=== PATIENT | male | born 1930 | race Caucasian/White ===

== ENCOUNTER 2016-09-25 16:32 | Inpatient (IN) | payer OTHER, MEDICAID ==
[~2016-09-25] VITALS: Ht 182.9 cm; Wt 85.3 kg
--- NOTE | 2016-09-25 16:32 | NUR ---
Placed in room 2. Placed on cardiac/vascular sonographer, blood pressure machine and pulse oximeter. To gown for exam. Side rails up. Report given to Torie DON.
--- NOTE | 2016-09-25 16:33 | NUR ---
Patient in stable condition, alert and oriented x4. Martiniquais speaking nurse translating. Patient states was sitting on toilet prior to arrival and passed out for short period of time, states woke up with nose bleeding. States that family found him sitting on toilet not concious-family told him he was out for only a few seconds. Patient states that he often gets nose bleeds. Denies falling off toilet or injuring self. No deformities/injuries noted. Denies dizziness now or at time of event. Denies chest pain, pressure or radiating pain. Denies shortness of breath. No other complaints/injuries per patient or noted. Addendum: 09/25/16 at 1833 by YOMAIRA Nose bleed noted along with blood in mouth -source unknown (small amount of blood) Nose clamped per MD order, no active bleeding following clamping.
--- NOTE | 2016-09-25 16:34 | NUR ---
ER Dr. Ward at bedside examining patient.
[2016-09-25 16:35] VITALS: BP 122/83; PULSE 67; RESP 17; TEMP 96.9; O2SAT 100
--- NOTE | 2016-09-25 16:40 | NUR ---
Patient 100% 02 on room air, Dr. Ward aware-okay to keep on room air per MD
[2016-09-25] MEDS ORDERED: cefTRIAXone 1 GM IVPB PREMIX 50 ML IV ONE (16:45)
--- NOTE | 2016-09-25 17:08 | NUR ---
no blood cultures needed per dr barahona
[2016-09-25 17:14] LABS: BASOPHILS # (AUTO) 0.1 K/uL (0.0-0.2); BASOPHILS % (AUTO) 1.5 % (0.0-2.0); EOSINOPHILS # (AUTO) 0.1 K/uL (0.0-0.4); EOSINOPHILS % (AUTO) 2.3 % (0.0-4.0); HEMATOCRIT 27.5 % (36-54); HEMOGLOBIN 8.9 g/dL (14.0-18.0); LYMPHOCYTES # (AUTO) 2.3 K/uL (1.0-5.5); MEAN CORPUSCULAR HEMOGLOBIN 26 pg (27-31); MEAN CORPUSCULAR HGB CONC 32 % (32-36); MEAN CORPUSCULAR VOLUME 79 fL (79.0-98.0); MONOCYTES # (AUTO) 0.4 K/uL (0.0-1.0); MONOCYTES % (AUTO) 6.7 % (1.7-9.3); NEUTROPHILS # (AUTO) 3.5 K/uL (1.8-7.7); NEUTROPHILS % (AUTO) 53.5 % (40.0-70.0); PLATELET COUNT (AUTO) 184 K/uL (130-430); RED BLOOD CELL COUNT(AUTO) 3.48 MIL/uL (4.2-6.2); RED CELL DISTRIBUTION WIDTH 16.8 % (9.0-15.0); WHITE BLOOD COUNT (AUTO) 6.4 K/uL (4.8-10.8)
[2016-09-25 17:16] LABS: ANION GAP 6 (5-15); CALCIUM 8.3 mg/dL (8.4-11.0); CHLORIDE 109 mmol/L (98-107); CREATININE 1.95 mg/dL (0.55-1.30); GLUCOSE 132 mg/dL (70-99); POTASSIUM 4.7 mmol/L (3.5-5.1); SODIUM SERUM 139 mmol/L (136-145); UREA NITROGEN, BLOOD 44 mg/dL (8-21)
[2016-09-25 17:19] LABS: INR 1.3 (0.80-1.20); PROTHROMBIN TIME 14.2 SECS (9.5-12.5)
[2016-09-25 17:20] LABS: ALANINE AMINOTRANSFERASE 19 U/L (12-78); ALBUMIN 3.1 g/dL (3.4-4.8); ASPARTATE AMINOTRANSFERASE 22 U/L (10-37); TOTAL BILIRUBIN 0.3 mg/dL (0.0-1.0); TOTAL PROTEIN, SERUM 6.7 g/dL (6.4-8.3)
--- NOTE | 2016-09-25 17:30 | NUR ---
Patient's nose bleeding, blood noted to mouth area-source unknown. Dr. Ward aware, at bedside examining patient.
--- NOTE | 2016-09-25 17:40 | NUR ---
Rapid rhino size 5.5cm placed in left nostril per MD. PT tolerated well
[2016-09-25] MEDS ORDERED: ALBUTEROL SULFATE 0.083% 2.5 MG/3 ML VIAL.NEB INH ONE (17:43)
[2016-09-25] MEDS ORDERED: NACL 0.9% 1,000 ML IV ONE (17:45)
[2016-09-25] MEDS ORDERED: IPRATROPIUM BROM 0.5 MG/2.5 ML VIAL.NEB (ATROVENT) IH ONE (17:45)
[2016-09-25] MEDS ORDERED: ONDANSETRON HCL 4 MG/2 ML VIAL IVP ONE (17:45)
[2016-09-25] MEDS ORDERED: ALBUTEROL SULFATE 0.083% 2.5 MG/3 ML VIAL.NEB IH ONE (17:45)
[2016-09-25] MEDS ORDERED: RIVA15TA PO (17:59)
[2016-09-25] MEDS ORDERED: METO25TA6 PO (17:59)
[2016-09-25] MEDS ORDERED: SIMV20TA6 PO (17:59)
[2016-09-25] MEDS ORDERED: ASPI81TA2 PO (17:59)
--- NOTE | 2016-09-25 18:00 | NUR ---
Medication reconciliation completed with information provided by - handwritten by family. Any prior medication reconciliation on file was reviewed and corrected.
[2016-09-25 18:37] LABS: BILIRUBIN,URINE NEGATIVE (NEGATIVE); BLOOD, URINE 1+ (NEGATIVE); CLARITY/URINE CLEAR (CLEAR); COLOR,URINE YELLOW (YELLOW); GLUCOSE,URINE NEGATIVE (NEGATIVE); KETONES,URINE NEGATIVE (NEGATIVE); LEUKOCYTE ESTERASE ,URINE NEGATIVE (NEGATIVE); NITRITE, URINE NEGATIVE (NEGATIVE); PROTEIN URINE NEGATIVE (NEGATIVE); UROBILINOGEN,URINE 0.2 (0.2-1.0)
[2016-09-25 18:41] LABS: BACTERIA,URINE FEW /HPF (None Seen); MUCUS,URINE 1+ /LPF (None Seen); WBC,URINE 0-3 /HPF (0-3)
--- NOTE | 2016-09-25 19:00 | NUR ---
Stable condition, no active bleeding to nares or mouth, patient tolerating rhino rocket to left nare well. Care endorsed to Danielle DON
--- NOTE | 2016-09-25 19:09 | NUR ---
Patient will be admitted to care of DR RICHARDSON. Admitted to TELE unit. Will go to room 110B. Belongings list completed. Summary report printed. Report given to FLORENCIA.
--- NOTE | 2016-09-25 19:28 | NUR ---
ADMISSION NOTE Received patient from ER via jeromy, received report from Danielle DON. Patient admitted with diagnosis of syncope. Patient oriented to hospital routine, call light, toileting and safety-patient verbalized understanding.
--- NOTE | 2016-09-25 19:30 | NUR ---
Transfer to 110B via ACLS protocol. Licensed nurse present. IV present no signs or symptoms of infiltration.
--- NOTE | 2016-09-25 19:43 | NUR ---
Reason for consultation: EPITAXIS Was consult called: Yes Person who was notified: RAYMOND Consulting Physician: CINTHIA GONSALVES Senior Software Engineer Analytics Specialty: aeronautics teacher
[2016-09-25 19:55] VITALS: BP 111/88; PULSE 66; RESP 20; TEMP 98; O2SAT 95
[2016-09-25 20:00] VITALS: BP 111/88; PULSE 66; RESP 20; TEMP 98; O2SAT 95
--- NOTE | 2016-09-25 20:00 | NUR ---
Er admission received patient resting in bed. Dx:Epistaxis,syncope. pt has rapid rhino to left nare for bleeding. pt suctioning mouth. 100ml bloody drainage noted in suction container. pt continues to suction.no bleeding noted from nose.no c/o pain or nausea. iv to left ac 20g. urinal at bedside. vs stable. 02 sat 95% room air. comm board updated. safety precautions in place. will follow up with admission orders.
[2016-09-25 20:43] LABS: HEMATOCRIT 26.5 % (36-54); HEMOGLOBIN 8.5 g/dL (14.0-18.0)
--- NOTE | 2016-09-25 21:27 | NUR ---
PAGED PAGED AUDREY GROVES AT [phone] SPOKE WITH RITESH.
--- NOTE | 2016-09-25 21:30 | NUR ---
PAGED DR RICHARDSON DAUGHTER VISITING. PT REQUESTING SOMETHING TO EAT. PER DAUGHTER, PT HASN'T EATEN ANYTHING SINCE THIS MORNING. PT NO LONGER BLEEDING . TOTAL OUTPUT BLOOD SUCTIONED 100ML. PT NOW USING SUCTION FOR CLEAR SALIVA.
--- NOTE | 2016-09-25 22:00 | NUR ---
paged dr noriega for diet order
--- NOTE | 2016-09-25 22:10 | NUR ---
2ND PAGE OUT TO PAGED AUDREY GROVES AT [phone] SPOKE WITH RITESH.
--- NOTE | 2016-09-25 23:00 | NUR ---
ROUNDS PT APPEARS TO BE SLEEPING. RESPIRATIONS EVEN AND UNLABORED. WILL CONTINUE TO MONITOR. CALL LIGHT AT SIDE.
[2016-09-26] VITALS: BP 122/50; PULSE 73; RESP 18; TEMP 97.9; O2SAT 97
--- NOTE | 2016-09-26 01:23 | NUR ---
ROUNDS PT CONTINUES TO SLEEP. NO S/S DISTRESS. NO ACTIVE BLEEDING NOTED. WILL CONTINUE TO MONITOR FOR ANY CHANGES.
[2016-09-26 02:36] LABS: HEMOGLOBIN 8.3 g/dL (14.0-18.0)
--- NOTE | 2016-09-26 02:46 | NUR ---
NOTES PT CONTINUES TO REST. NO S/S DISTRESS. WILL CONTINUE TO MONITOR. CALLED TO FOLLOW UP WITH [facility].
[2016-09-26 03:34] VITALS: BP 130/77; PULSE 70; RESP 18; TEMP 97.5; O2SAT 98
--- NOTE | 2016-09-26 03:39 | NUR ---
NOTES DR RICHARDSON CALLED TO SPEAK WITH SANTANA [place]. WHILE HE WAS AVAILABLE, I SPOKE WITH HIM REGARDING ORDERS AND DIET FOR PT. DR RICHARDSON SAID NO. HE'LL DEAL WITH IT IN THE MORNING. "NO PT WILL BE EATING AT 2 IN THE MORNING. " WILL ENDORSE TO MORNING NURSE. CHARGE NURSE AWARE.
--- NOTE | 2016-09-26 04:22 | NUR ---
ROUNDS PT RESTING. OPENS EYES TO SOUND OF VOICE. NO BLEEDING NOTED. WILL CONTINUE WITH HOURLY ROUNDS.,
[2016-09-26 08:00] VITALS: BP 151/72; PULSE 68; RESP 18; TEMP 97.7; O2SAT 97
--- NOTE | 2016-09-26 08:00 | NUR ---
OPENING NOTE PATIENT IS AWAKE, ALERT CONGOLESE SPEAKING MOSTLY. REPORTS PAIN TO LEFT NARE, SEVERE THIRST (NO DIET ORDERED NO IV FLUIDS ORDERED), BLEEDING CONTROLLED. PT USING SUCTION ORALLY, CLEAR LIQUID, NO SIGNS OF BLEEDING. NO OTHER SIGNS OF DISTRESS
[2016-09-26 08:33] LABS: HEMATOCRIT 24.7 % (36-54); HEMOGLOBIN 7.8 g/dL (14.0-18.0)
--- NOTE | 2016-09-26 08:39 | NUR ---
PRBC'S NOT TRANSFUSED. WILL TRANSFUSE STAT
--- NOTE | 2016-09-26 09:10 | NUR ---
TRANSFUSION STARTED PER PROTOCOL, VERIFIED BY FLORENCIA EDWARDS, AND PATIENT GIVEN THAI CONSENT AND DRUM TENDER FOR ANY QUESTIONS. PT AGREED AND SIGNED CONSENT. INITIAL VITALS OBTAINED.
--- NOTE | 2016-09-26 10:20 | NUR ---
TRANSFUSION COMPLETE, NO REACTION, FLUSHING IV WITH NS
--- NOTE | 2016-09-26 11:50 | NUR ---
NS HUNG PER ORDERS.
[2016-09-26 11:53] LABS: ANION GAP 1 (5-15); CALCIUM 7.9 mg/dL (8.4-11.0); CHLORIDE 109 mmol/L (98-107); GLUCOSE 157 mg/dL (70-99); POTASSIUM 4.2 mmol/L (3.5-5.1); SODIUM SERUM 138 mmol/L (136-145); UREA NITROGEN, BLOOD 42 mg/dL (8-21)
[2016-09-26 11:58] LABS: ALANINE AMINOTRANSFERASE 19 U/L (12-78); ALBUMIN 2.9 g/dL (3.4-4.8); ASPARTATE AMINOTRANSFERASE 20 U/L (10-37); TOTAL BILIRUBIN 0.4 mg/dL (0.0-1.0); TOTAL PROTEIN, SERUM 5.9 g/dL (6.4-8.3)
[2016-09-26 12:00] VITALS: BP 137/70; PULSE 67; RESP 18; TEMP 98.2; O2SAT 94
[2016-09-26] MEDS: NACL 0.9% 1,000 ML IV SCH (12:14)
--- NOTE | 2016-09-26 13:35 | NUR ---
PATIENT ATE 100% OF LUNCH. DENIES ANY PAIN AT THIS TIME. REPORTS BEING COMFORTABLE. ALL NEEDS ARE MET. IV INFUSING ORDERED
[2016-09-26 14:27] LABS: HEMATOCRIT 27.6 % (36-54)
--- NOTE | 2016-09-26 15:38 | NUR ---
DR COLEMAN IN TO SEE PATIENT. ORDERS FOR AMOXICILLIN X 5 DAY SAND TO HAVE RHINO-ROCKET REMOVED BY A LOCAL ENT IN [place] ON THE
[2016-09-26 16:00] VITALS: BP 127/72; PULSE 82; RESP 18; TEMP 97.8; O2SAT 96
--- NOTE | 2016-09-26 17:15 | NUR ---
PATIENT STATES HE IS NOT HUNGRY FOR DINNER BUT MAY EAT A LITTLE. STATES HE ONLY EATS ONCE A DAY AT HOME. NO SIGNS OF DISTRESS, DENIES ANY PAIN, RHINO ROCKET REMAINS IN LEFT NARE, NO SIGNS OF BLEEDING. SERIAL H&H SHOWING IMPROVEMENT AFTER TRANSFUSION.
--- NOTE | 2016-09-26 20:05 | NUR ---
Initial Notes Patient alert and oriented, greenlandic speaking. Denies pain at this time. No SOB noted, on room air. IV site patent, flushes well, infusing fluids as ordered. Patient repositioned self in bed. Goal of pain management, GI stability and safety this shift. Call light within reach. Will continue to monitor.
[2016-09-26 20:19] VITALS: BP 125/75; PULSE 54; RESP 18; TEMP 98.2; O2SAT 93
[2016-09-26 21:31] LABS: HEMATOCRIT 26.9 % (36-54); HEMOGLOBIN 8.6 g/dL (14.0-18.0)
--- NOTE | 2016-09-26 22:00 | NUR ---
Notes Patient sleeping at this time. No s/s of pain or discomfort noted. No SOB noted. IV site patent, flushes well, infusing fluids as ordered. Call light within reach. Will continue to monitor.
[2016-09-26] MEDS: AMOXICILLIN 500 MG CAPSULE PO SCH (22:41)
[2016-09-27] VITALS: BP 153/87; PULSE 80; RESP 17; TEMP 97.8; O2SAT 95
--- NOTE | 2016-09-27 00:15 | NUR ---
Notes Patient sleeping at this time. No s/s of pain noted. Afebrile. No SOB noted. IV site patent, flushes well. Call light within reach. Will continue to monitor.
[2016-09-27] MEDS: NACL 0.9% 1,000 ML IV SCH ×2 (00:33→14:22)
[2016-09-27 04:00] VITALS: BP 159/80; PULSE 53; RESP 17; TEMP 98.6; O2SAT 95
[2016-09-27] MEDS: AMOXICILLIN 500 MG CAPSULE PO SCH ×2 (06:00→14:21)
--- NOTE | 2016-09-27 06:49 | NUR ---
Closing Notes Denies pain at this time. No SOB noted, on room air. IV site patent, flushes well, infusing fluids as ordered. Patient repositioned self in bed. Goal of pain management, GI stability and safety met. Call light within reach. Will continue to monitor.
[2016-09-27 08:00] VITALS: BP 151/76; PULSE 83; RESP 17; TEMP 97.8; O2SAT 95
--- NOTE | 2016-09-27 08:00 | NUR ---
INITIAL NOTE PT SITTING UP IN BED, SET UP FOR MEAL, ALERT AND ORIENTED X4, BELIZEAN SPEAKING, NO S/S OF DISTRESS OR COMPLAINT OF PAIN, RHINO ROCKET NOTED TO LEFT NOSTRIL, NO ACTIVE BLEEDING, IV TO LAC INTACT AND PATENT INFUSING NS AT 70ML/HR, NO S/S OF INFILTRATION NOTED, PT REORIENTED TO USE OF CALL LIGHT AND IT IS PLACED WITHIN REACH, SAFETY MEASURES IN PLACE, BED IN LOW POSITION AND LOCKED, WILL CONTINUE TO MONITOR.
[2016-09-27 08:29] LABS: HEMATOCRIT 28.4 % (36-54); HEMOGLOBIN 8.7 g/dL (14.0-18.0)
--- NOTE | 2016-09-27 10:13 | NUR ---
DR RICHARDSON MAKING ROUNDS
[2016-09-27 10:18] LABS: ANION GAP 4 (5-15); CALCIUM 7.7 mg/dL (8.4-11.0); CHLORIDE 108 mmol/L (98-107); CREATININE 1.35 mg/dL (0.55-1.30); GLUCOSE 109 mg/dL (70-99); SODIUM SERUM 137 mmol/L (136-145); UREA NITROGEN, BLOOD 33 mg/dL (8-21)
[2016-09-27 10:23] LABS: ALANINE AMINOTRANSFERASE 19 U/L (12-78); ALBUMIN 2.9 g/dL (3.4-4.8); ASPARTATE AMINOTRANSFERASE 24 U/L (10-37); TOTAL BILIRUBIN 0.4 mg/dL (0.0-1.0)
--- NOTE | 2016-09-27 10:30 | NUR ---
ABLE TO GET A HOLD OF DAUGHTER, ELEANOR, , DR RICHARDSON SPOKE WITH DAUGHTER REGARDING CARE AND REQUIRED INFORMATION. DAUGHTER WILL FOLLOW UP
--- NOTE | 2016-09-27 11:04 | NUR ---
Social Service Note: CABINET ASSEMBLER received order to contact pt's family. CABINET ASSEMBLER called [phone], number on the face sheet for pt's dtr; this number is not a working number. CABINET ASSEMBLER reviewed discharge plan assessment done by geriatric case manager and the dtr's number is listed as: [phone]; CABINET ASSEMBLER contacted this number and left a message. CABINET ASSEMBLER also called [phone] and this number only rings and there is no option to leave a voice mail. CABINET ASSEMBLER will continue to try and reach pt's family.
[2016-09-27 12:00] VITALS: BP 140/70; PULSE 77; RESP 18; TEMP 98.6; O2SAT 97
--- NOTE | 2016-09-27 12:30 | NUR ---
ROUNDS PT SITTING UP IN BED, NO S/S OF DISTRESS OR COMPLAINT OF PAIN NOTED, VSS, PT STATES HE HAS NO NEEDS AT THIS TIME, SAFETY MEASURES IN PLACE. CALL LIGHT WITHIN REACH, WILL FOLLOW UP
--- NOTE | 2016-09-27 12:53 | NUR ---
NEW ORDER RECEIVED FROM DR RICHARDSON, DISCHARGE PATIENT HOME IF OK WITH DR BISHOP, WILL PAGE DR BISHOP. AND FOLLOW UP
--- NOTE | 2016-09-27 13:09 | NUR ---
CONS FOR DR BISHOP FOR ARTIFICAL VALVE SW ISREAL
--- NOTE | 2016-09-27 13:09 | NUR ---
DR EDNA CATES FOR CONSULT, UPDATED ON DISCHARGE PENDING HIS APPROVAL, MD TO FOLLOW UP.
[2016-09-27 14:14] LABS: HEMOGLOBIN 8.7 g/dL (14.0-18.0)
[2016-09-27 14:22] LABS: HEMATOCRIT 27.6 % (36-54)
--- NOTE | 2016-09-27 14:30 | NUR ---
ROUNDS AFTERNOON MEDICATIONS ADMINISTER, PT TOLERATED WELL, FAMILY AT BEDSIDE, PT ASSISTED TO BE CLEANED BY FAMILY PER FAMILY REQUEST, FAMILY UPDATED ON PLAN OF CARE, SAFETY MEASURES IN PLACE, CALL LIGHT WITH IN REACH, WILL FOLLOW UP
--- NOTE | 2016-09-27 15:33 | NUR ---
PAGED DR BISHOP TO FOLLOW UP ON CONSULT, DISCHARGE PENDING HIS APPROVAL, LEFT MESSAGE WITH OFFICE. AWAITING CALL BACK.
[2016-09-27 16:00] VITALS: BP 124/78; PULSE 71; RESP 18; TEMP 98.4; O2SAT 98
--- NOTE | 2016-09-27 16:44 | NUR ---
DR DYLAN PAYNE MD STATES HE SPOKE WITH PATIENTS PACKAGE CHECKER, OK TO DISCHARGE PATIENT WITH NOSE PLUG, PT TO DISCONTINUE ALL BLOOD THINNERS, PT TO FOLLOW UP WITH PRIMARY CARE PROVIDER AND ENT IN ONE WEEK, PRIMARY OR ENT WILL REMOVE NOSE PLUG. PT MADE AWARE, VERBALIZED UNDERSTANDING OF PENDING DISCHARGE AND INSTRUCTIONS, WILL FOLLOW UP.
[2016-09-27 16:50] VITALS: BP 130/76; PULSE 83; RESP 18; TEMP 98.9; O2SAT 99
--- NOTE | 2016-09-27 16:50 | NUR ---
PTS DAUGHTER, ELEANOR CALLED TO UPDATE ON PENDING DISCHARGE AND WHEN SHE WOULD BE ABLE TO PICK PATIENT UP, NO ANSWER, LEFT VOICE MESSAGE FOR CALL BACK, AWAITING RESPONSE, WILL FOLLOW UP.
--- NOTE | 2016-09-27 18:10 | NUR ---
SPOKE WITH DAUGHTER ELEANOR REGARDING DISCHARGE, DAUGHTER STATED SHE WOULD NOT BE ABLE TO STAY CUTTER PATIENT UNTIL AFTER 8PM, WILL ENDORSE TO FOLLOWING SHIFT.
--- NOTE | 2016-09-27 18:40 | NUR ---
TRANSITIONAL PAPERWORK REVIEWED WITH PATIENT, PT VERBALIZED UNDERSTANDING. PAPERWORK SIGNED. AWAITING DAUGHTER, ELEANOR, TO ARRIVE TO REVIEW TRANSITIONAL PAPERWORK WITH HER. WILL ENDORSE TO FOLLOWING SHIFT.
--- NOTE | 2016-09-27 19:00 | NUR ---
CLOSING NOTE PT LAYING IN BED, RESTING, NO S/S OF DISTRESS OR COMPLAINT OF PAIN, NOSE PLUG IN PLACE, NO S/S OF ACTIVE BLEEDING NOTED, IV TO LAC INTACT AND INFUSING FLUIDS AT ORDERED RATE, NO S/S OF INFILTRATION NOTED. PT REMINDED OF PENDING DISCHARGE, PT VERBALIZED UNDERSTANDING, ALL NEEDS ATTENDED TO DURING SHIFT, SAFETY MEASURES IN PLACE, CALL LIGHT WITHIN REACH, BED IN LOW POSITION AND LOCKED, WILL GIVE REPORT TO FOLLOWING SHIFT.
--- NOTE | 2016-09-27 19:10 | NUR ---
INITIAL NOTES' RECVD PT IN BED WITH DR MOHAN @ BEDSIDE. PT IS A/A/O X3. NO S/S OF PAIN. V/S 145/72,98.4,78,18,95%,ALL EXTREMITIES ARE STRONG BUT REFUSED TO STAND UP ORDERED BY MD. NOTED RHINO PLUG TO L NOSTRIL. IV SITE TO L A/C G20 SL. CLEARED PT TO BE D/C,AND IS WAITING FOR HIS DAUGHTER FOR P/U.WILL CONT TO MONITOR.
[2016-09-27 19:54] LABS: HEMATOCRIT 29.5 % (36-54); HEMOGLOBIN 9.4 g/dL (14.0-18.0)
--- NOTE | 2016-09-27 20:55 | NUR ---
D/C PT PT WAS P/U BY DAUGHTER. NO SOB AND C/O PAIN DURING D/C. V/S ARE WNL. IV WAS REMOVED AND D/C INSTRUCTION WAS EXPLAINED TO PT. ALL BELONGINGS WAS WITH PT.
--- NOTE | 2016-10-02 14:24 | NUR ---
Discharge Follow Up Phone Calls: Non Destructive Evaluation Technician called and left voice mails for pt's dtr, Antonia ([phone]), on 09/28/16 and today. Pt's dtr called back today. Pt's dtr states that pt is doing well; pt's prescriptions have been filled; there are no questions regarding discharge or medication instructions; pt has attended PCP and ENT follow up appointments. Pt's dtr did not express any other needs or concerns and denied the need for additional follow up at this time. No further follow up phone calls required at this time.
== END 2016-09-27 20:55 | disposition home or self-care (01) | DRG 150 ==
LOC: SED 16:32 → STU 19:21 → SMU 09-26 14:35
PROVIDERS: ADMIT Internal Medicine Hospice and Palliative Medicine; ATTEND Internal Medicine Hospice and Palliative Medicine
PROC: 30233N1 Transfusion of Nonautologous Red Blood Cells into Peripheral Vein, Percutaneous Approach (ICD-10-PCS; principal; 2016-09-26)
DX: R04.0 Epistaxis (principal); N17.0 Acute kidney failure with tubular necrosis; D64.9 Anemia, unspecified; I10 Essential (primary) hypertension; R55 Syncope and collapse; E78.00 Pure hypercholesterolemia, unspecified; I48.2 Chronic atrial fibrillation; Z95.1 Presence of aortocoronary bypass graft; Z95.0 Presence of cardiac pacemaker; Z79.82 Long term (current) use of aspirin; Z79.899 Other long term (current) drug therapy; Z85.46 Personal history of malignant neoplasm of prostate
CPT/HCPCS: 36415; 70450-TC; 71010; 76770; 80053; 81000-TC; 84484; 85018-TC; 85025; 85610-TC; 85730-TC; 86886; 86900; 86901; 86920; 93005; 94640; 96365; 96375; 99285; J0696; J2405; J7030; P9021